=== PATIENT | male | born 1990 | race Caucasian/White ===

== ENCOUNTER → 2021-04-03 | Outpatient (CLI) | payer OTHER ==
[~2021-04-03] MED LIST: CEPHALEXIN500 MG PO; HYDROCODON-ACE1 EAC4 PO
== END ==
LOC: EXRD 10:35
DX: M79.642 Pain in left hand (principal); M79.641 Pain in right hand; E55.9 Vitamin D deficiency, unspecified
CPT/HCPCS: 72110; 73120; 73630

== ENCOUNTER 2021-08-23 16:24 | Emergency (ER) | payer OTHER ==
[2021-08-23 16:50] LABS: HEMOGLOBIN 13.9 gm/dl (14.0-17.5); RED BLOOD COUNT 4.59 M/UL (4.20-5.50); WHITE BLOOD COUNT 6.9 K/UL (4.5-11.0)
[2021-08-23 17:27] LABS: BUN/CREATININE RATIO 25 (0-10)
[2021-08-23] MEDS ORDERED: ZOFRAN 4 MG TAB4 MG PO (20:49)
[2021-08-23] MEDS ORDERED: CEFUROXIME500 MG PO (20:49)
== END 2021-08-23 22:40 | disposition home or self-care (01) ==
LOC: ER1 16:24
PROVIDERS: Physician Assistant
DX: E86.0 Dehydration (principal); J01.90 Acute sinusitis, unspecified; M62.82 Rhabdomyolysis
CPT/HCPCS: 70450; 71045; 80053; 81001; 82550; 82553; 83690; 84484; 85025; 93005; 96374; 96375; 99284; J0696; J1170; J2405; Q9967